=== PATIENT | female | born 1965 ===

== ENCOUNTER 2023-04-09 05:32 | Day surgery (SDC) | payer OTHER ==
[~2023-04-09 05:32] MED LIST: AVALIDE 300-121 EACH PO
== END 2023-04-09 16:10 | disposition home or self-care (01) ==
LOC: CIR.AMB 05:32
PROVIDERS: ATTEND Surgery Surgery of the Hand
DX: M65.842 Other synovitis and tenosynovitis, left hand (principal); Z20.822 Contact with and (suspected) exposure to COVID-19; I10 Essential (primary) hypertension